=== PATIENT | female | born 1990 | race Caucasian/White ===

== ENCOUNTER 2016-11-24 19:47 | Emergency (ER) | payer BC ==
[2016-11-24] MEDS ORDERED: NS 0.9% 1000 ML* 1,000 ML IV ONE (20:45)
[2016-11-24 21:01] LABS: Urine Bacteria Absent (Absent); Urine Bilirubin Negative (Negative); Urine Glucose Negative (Negative); Urine Nitrite Negative (Negative)
--- NOTE | 2016-11-24 21:44 | RAD ---
Indication: Threatened , vaginal bleeding. COMPARISON: There are no prior studies available for comparison. TECHNIQUE: Multiple real-time transvaginal images of the pelvis were obtained. FINDINGS: There is a sac like structure present in the lower uterine segment with internal echoes. The sac measures 1.45 cm in diameter corresponding to an estimate a gestational age of 6 weeks 2 days. There is also fluid in the upper portion of the endometrial cavity. No fetus or heartbeat is seen. The right ovary measured 3.1 x 2.0 x 2.6 cm. The left ovary measured 3.0 x 2.4 x 1.6cm. There is vascular flow within both ovaries. No free intraperitoneal fluid is seen. IMPRESSION: SACLIKE STRUCTURE IN THE LOWER UTERINE SEGMENT LIKELY REPRESENTING AN EARLY INTRAUTERINE AT HIGH RISK FOR SPONTANEOUS MISCARRIAGE OR ALTERNATIVELY A SPONTANEOUS MISCARRIAGE IN PROGRESS.
[2016-11-24 22:23] LABS: Hematocrit 40 % (35-47); Hemoglobin 13.4 g/dl (12.0-16.0); Mean Corpuscular HGB Conc 34 g/dl (31-36); Mean Corpuscular Hemoglobin 30 pg (27-31); Mean Corpuscular Volume 87 fL (80-97); Mean Platelet Volume 8 um3 (7.4-10.4); Red Blood Count 4.54 10^6/ul (4.0-5.4); Red Cell Distribution Width 13 % (10.5-15)
[2016-11-24 22:38] LABS: Albumin 4.4 g/dL (3.2-5.2); BUN/Creatinine Ratio 19.1 (8-20); Calcium 9.4 mg/dL (8.6-10.3); EGFR African American 136.7 (>60); EGFR Non-African American 106.3 (>60); Globulin 2.8 g/dL (2-4); Potassium 4.1 mmol/L (3.5-5.0); Total Bilirubin 0.3 mg/dL (0.2-1.0); Total Protein 7.2 g/dL (6.4-8.9)
[2016-11-25] MEDS ORDERED: Ibuprofen TAB* 200 MG PO ONE (00:29)
--- NOTE | 2016-11-25 00:37 | ED ---
Betito Wong Aidan, scribed for Mihir Zhang on 11/24/16 at 2108 . - HPI Summary HPI Summary: 26 y/o female presents to the ED with a complaint of acute, moderate episodes of heavy vaginal bleeding that began yesterday and became substantially heavier today. She is 9 weeks with her 3rd child. Several hours ago, she began passing large vaginal blood clots and has passed 5 clots since then. When she spoke with her PCP recently, she was told that she may have a yeast infection. Lastly, 2-3 days ago, she had a stomach virus with vomiting and diarrhea. The patient believes that she may be having a miscarriage. Hx of last menstrual period was 09/19/16. After evaluating the patient, Dr. Whitten requested discharge and for the patient to follow up with the clinic at 2PM tomorrow. - History of Current Complaint Chief Complaint: EDVaginalBleeding Stated Complaint: 9 WKS PREG/VAG BLEED//BLOOD CLOTS Time Seen by Provider: 11/24/16 20:38 Hx Obtained From: Patient, Family/Certified Diabetes Educator - mother Chief Complaint: Vaginal Bleeding Onset/Duration: Started Days Ago - began yesterday, Still Present Timing: Intermittent - episodes of heavy vaginal bleeding and passing clots, Lasting Hours Severity: Moderate Current Severity: Mild Pain Intensity: 0 Location of Pain: None Character: None Aggravating Factors: Other: - unknown Alleviating Factors: Other: - unknown Associated Signs and Symptoms: Positive: Vaginal Bleeding or Discharge - and passing large blood clots - Assessment Hx Now: Yes - 3rd Hx : 3 - Pt is currently with #3 Hx Para: 2 - Pt currently has 2 children SAB: 0 IEA: 0 History of Ectopic : No Vaginal Bleeding Amount: Large - heavy bleeding today. Hx Last Menstrual Period: 09/19/16 - Risk Factors Ovarian Torsion Risk Factor: Reproductive Age - Additional Pertinent History Maternal Blood Type and Rh: A Positive - Allergies/Home Medications Allergies/Adverse Reactions: Allergies Allergy/AdvReac Type Severity Reaction Status Date / Time Penicillins Allergy Unknown states Verified 04/11/14 16:07 unknown, allergy since baby per her mom PMH/Surg Hx/FS Hx/Imm Hx Infectious Disease History: No Infectious Disease History: Denies: Traveled Outside the [place] in Last 30 Days - Family History Known Family History: Negative: Diabetes - Social History Occupation: Employed Full-time Lives: Alone Alcohol Use: None Substance Use Type: Reports: None Smoking Status (MU): Never Smoked Tobacco Have You Smoked in the Last Year: No Review of Systems Constitutional: Negative Eyes: Negative ENT: Negative Cardiovascular: Negative Respiratory: Negative Gastrointestinal: Negative Genitourinary: Other - heavy vaginal bleeding Musculoskeletal: Negative Skin: Negative Neurological: Negative Psychological: Normal All Other Systems Reviewed And Are Negative: Yes Physical Exam - Physical Exam Triage Information Reviewed: Yes Vital Signs On Initial Exam: Temp Pulse Resp BP SpO2 FiO2 99.3 F 105 18 125/74 100 11/24/16 19:51 11/24/16 19:51 11/24/16 19:51 11/24/16 19:51 11/24/16 19:51 Vital Signs Reviewed: Yes Appearance: Positive: Well-Appearing, No Pain Distress Skin: Positive: Warm, Skin Color Reflects Adequate Perfusion, Dry Head/Face: Positive: Normal Head/Face Inspection Eyes: Positive: EOMI, DONELL ENT: Positive: Normal ENT inspection Neck: Positive: Supple, Nontender Respiratory/Lung Sounds: Positive: Clear to Auscultation, Breath Sounds Present Cardiovascular: Positive: RRR, Pulses are Symmetrical in both Upper and Lower Extremities Abdomen Description: Positive: Nontender, Soft Bowel Sounds: Positive: Present Musculoskeletal: Positive: Strength/ROM Intact Neurological: Positive: Sensory/Motor Intact, Alert, Oriented to Person Place, Time Psychiatric: Positive: Affect/Mood Appropriate AVPU Assessment: Alert - Vaginal Assessment Presentation Comment: unchanged Procedures - Procedure Summary Procedure Summary: Dr. Zhang performed a PELVIX EXAM procedure, during which carter chaperoned. The cervix was closed and there was active bleeding. Dr. Zhang could not fully clear the blood clots. The patient had no adnexal tenderness. Diagnostics - Vital Signs Vital Signs Temp Pulse Resp BP Pulse Ox 11/24/16 19:51 99.3 F 105 18 125/74 100 - Laboratory Lab Results: Lab Results 11/24/16 11/24/16 11/24/16 Range/Units 20:44 22:00 22:00 WBC 11.0 H (3.5-10.8) 10^3/ul RBC 4.54 (4.0-5.4) 10^6/ul Hgb 13.4 (12.0-16.0) g/dl Hct 40 (35-47) % MCV 87 (80-97) fL MCH 30 (27-31) pg MCHC 34 (31-36) g/dl RDW 13 (10.5-15) % Plt Count 256 (150-450) 10^3/ul MPV 8 (7.4-10.4) um3 Neut % (Auto) 69.5 (38-83) % Lymph % (Auto) 20.6 L (25-47) % Ripley % (Auto) 8.6 (1-9) % Eos % (Auto) 1.0 (0-6) % Baso % (Auto) 0.3 (0-2) % Absolute Neuts (auto) 7.7 (1.5-7.7) 10^3/ul Absolute Lymphs (auto) 2.3 (1.0-4.8) 10^3/ul Absolute Monos (auto) 0.9 H (0-0.8) 10^3/ul Absolute Eos (auto) 0.1 (0-0.6) 10^3/ul Absolute Basos (auto) 0 (0-0.2) 10^3/ul Absolute Nucleated RBC 0 10^3/ul Nucleated RBC % 0 INR (Anticoag Therapy) 0.90 (0.89-1.11) Sodium (133-145) mmol/L Potassium (3.5-5.0) mmol/L Chloride (101-111) mmol/L Carbon Dioxide (22-32) mmol/L Anion Gap (2-11) mmol/L BUN (6-24) mg/dL Creatinine (0.51-0.95) mg/dL Est GFR ( Amer) (>60) Est GFR (Non-Af Amer) (>60) BUN/Creatinine Ratio (8-20) Glucose (70-100) mg/dL Calcium (8.6-10.3) mg/dL Total Bilirubin (0.2-1.0) mg/dL AST (13-39) U/L ALT (7-52) U/L Alkaline Phosphatase (34-104) U/L Total Protein (6.4-8.9) g/dL Albumin (3.2-5.2) g/dL Globulin (2-4) g/dL Albumin/Globulin Ratio (1-3) Beta HCG, Quant mIU/mL Urine Color Straw Urine Appearance Clear Urine pH 7.0 (5-9) Ur Specific Warren 1.003 L (1.010-1.030) Urine Protein Negative (Negative) Urine Ketones Negative (Negative) Urine Blood 3+ H (Negative) Urine Nitrate Negative (Negative) Urine Bilirubin Negative (Negative) Urine Urobilinogen Negative (Negative) Ur Leukocyte Esterase Negative (Negative) Urine WBC (Auto) Absent (Absent) Urine RBC (Auto) 3+(>10/hpf) H (Absent) Ur Squamous Epith Cells Present H (Absent) Urine Bacteria Absent (Absent) Urine Glucose Negative (Negative) Blood Type Antibody Screen 11/24/16 11/24/16 Range/Units 22:00 22:00 WBC (3.5-10.8) 10^3/ul RBC (4.0-5.4) 10^6/ul Hgb (12.0-16.0) g/dl Hct (35-47) % MCV (80-97) fL MCH (27-31) pg MCHC (31-36) g/dl RDW (10.5-15) % Plt Count (150-450) 10^3/ul MPV (7.4-10.4) um3 Neut % (Auto) (38-83) % Lymph % (Auto) (25-47) % Ripley % (Auto) (1-9) % Eos % (Auto) (0-6) % Baso % (Auto) (0-2) % Absolute Neuts (auto) (1.5-7.7) 10^3/ul Absolute Lymphs (auto) (1.0-4.8) 10^3/ul Absolute Monos (auto) (0-0.8) 10^3/ul Absolute Eos (auto) (0-0.6) 10^3/ul Absolute Basos (auto) (0-0.2) 10^3/ul Absolute Nucleated RBC 10^3/ul Nucleated RBC % INR (Anticoag Therapy) (0.89-1.11) Sodium 135 (133-145) mmol/L Potassium 4.1 (3.5-5.0) mmol/L Chloride 103 (101-111) mmol/L Carbon Dioxide 26 (22-32) mmol/L Anion Gap 6 (2-11) mmol/L BUN 13 (6-24) mg/dL Creatinine 0.68 (0.51-0.95) mg/dL Est GFR ( Amer) 136.7 (>60) Est GFR (Non-Af Amer) 106.3 (>60) BUN/Creatinine Ratio 19.1 (8-20) Glucose 90 (70-100) mg/dL Calcium 9.4 (8.6-10.3) mg/dL Total Bilirubin 0.30 (0.2-1.0) mg/dL AST 14 (13-39) U/L ALT 10 (7-52) U/L Alkaline Phosphatase 45 (34-104) U/L Total Protein 7.2 (6.4-8.9) g/dL Albumin 4.4 (3.2-5.2) g/dL Globulin 2.8 (2-4) g/dL Albumin/Globulin Ratio 1.6 (1-3) Beta HCG, Quant 91459.00 mIU/mL Urine Color Urine Appearance Urine pH (5-9) Ur Specific Warren (1.010-1.030) Urine Protein (Negative) Urine Ketones (Negative) Urine Blood (Negative) Urine Nitrate (Negative) Urine Bilirubin (Negative) Urine Urobilinogen (Negative) Ur Leukocyte Esterase (Negative) Urine WBC (Auto) (Absent) Urine RBC (Auto) (Absent) Ur Squamous Epith Cells (Absent) Urine Bacteria (Absent) Urine Glucose (Negative) Blood Type A Positive Antibody Screen Negative Result Diagrams: 11/24/16 22:00 11/24/16 22:00 Lab Statement: Any lab studies that have been ordered have been reviewed, and results considered in the medical decision making process. - Ultrasound No standard instances Ultrasound Interpretation: Positive (See Comments) - TRANSVAGINAL US IMPRESSION : SACLIKE STRUCTURE IN THE LOWER UTERINE SEGMENT LIKELY REPRESENTING AN EARLY INTRAUTERINE AT HIGH RISK FOR SPONTANEOUS MISCARRIAGE OR ALTERNATIVELY A SPONTANEOUS MISCARRIAGE IN PROGRESS. Ultrasound Interpretation Completed By: Radiologist Course/Dx - Course Course Of Treatment: This is a 26 y/o female presenting with heavy vaginal bleeding that began yesterday and became substantially heavier today. She is currently around 9 weeks with her 3rd child (G = 3, P = 2, A = 0). Today, she has passed roughly 5 blood clots vaginally. The patient is concerned that she is having a miscarriage. Dr. Whitten requested that the patient be moved to a pelvic bed. He intends to come in to evaluate the patient. - Diagnoses Provider Diagnoses: Threatened - Provider Notifications Discussed Care Of Patient With: Dr. Whitten (MARKETING OPERATIONS CONSULTANT) Time Discussed With Above Provider: 23:34 - Dr. Whitten recommended a pelvic and to see how much the patient is bleeding. If she isnt bleeding much, she will follow up with Dr. Whitten at 2PM tomorrow. Dr. Wihtten was consulted again. She requested that the patient be placed on a pelvic bed and intends to come in to evaluate the patient. After evaluation, Dr. Whitten found the patient to be well enough for discharge. Discharge - Discharge Plan Condition: Stable Disposition: HOME Discharge Disposition Comment: Please follow up with the clinic at 2PM tomorrow. Patient Education Materials: Threatened Miscarriage (ED) Referrals: Odilon Frey MD [Primary Care Provider] - The documentation as recorded by the Betito wellington Aidan accurately reflects the service I personally performed and the decisions made by me, Mihir Zhang.
[2016-11-25 06:58] VITALS: BP 133/76
== END 2016-11-25 01:45 | disposition home or self-care (01) ==
LOC: ED 19:47
DX: O20.0 Threatened abortion (principal); Z3A.09 9 weeks gestation of pregnancy
CPT/HCPCS: 36415; 76817; 80053; 81003; 81015; 84702; 85025; 85610; 86850; 86900; 86901; 88305; 96360; 99284; A9270-GY

== ENCOUNTER 2017-01-20 12:54 | Emergency (ER) | payer BC ==
[2017-01-20 13:06] VITALS: BP 124/75
--- NOTE | 2017-01-20 14:15 | UC ---
Complaint Female HPI - HPI Summary HPI Summary: ONE DAY HISTORY OF LOWER ABDOMINAL AND RIGHT FLANK DISCOMFORT, COMES AND GOES. URGENCY AND FREQUENCY WITH URINATION. NO FEVER. NO HISTORY OF KIDNEY STONES. LAST MENSTRUL PERIOD 01/13/17 WAS FIRST PERIOD SINCE MISCARRIED ON 11/25/16. - History Of Current Complaint Chief Complaint: UCAbdominalPain Stated Complaint: SIDE PAIN Time Seen by Provider: 01/20/17 13:46 Hx Obtained From: Patient Hx Last Menstrual Period: 01/13/17 Onset/Duration: Gradual Onset, Lasting Days, Still Present Timing: Intermittent, Lasting Seconds Severity Initially: Mild Severity Currently: Mild Character: Dull, Burning, Colicy Aggravating Factor(s): Movement, Urination Associated Signs And Symptoms: Positive: Back Pain. Negative: Fever, Vaginal Bleeding/Discharge, Vaginal Discharge, Nausea, Vomiting(# Of Episodes =), Genital Swelling, Genital Blisters, Retained Foregin Body (Specify) - Risk Factors Ectopic Risk Factor: Negative Ovarian Torsion Risk Factor: Reproductive Age, Ovarian Cysts/Tumors - Allergies/Home Medications Allergies/Adverse Reactions: Allergies Allergy/AdvReac Type Severity Reaction Status Date / Time Penicillins Allergy Unknown states Verified 04/11/14 16:07 unknown, allergy since baby per her mom Home Medications: Home Medications Acetaminophen [Acetaminophen Extra Stren] 500 mg PO 01/20/17 [History] Multiple Vitamins W/ Minerals [Multivitamin Women] 1 tab PO 01/20/17 [History] PMH/Surg Hx/FS Hx/Imm Hx Previously Healthy: Yes Endocrine History Of: Denies: Diabetes, Thyroid Disease Cardiovascular History Of: Denies: Cardiac Disorders, Hypertension Respiratory History Of: Denies: COPD, Asthma GI/ History Of: Denies: Ulcer - Surgical History Surgical History: Yes Surgery Procedure, Year, and Place: orbital tripod fx surgery - Family History Known Family History: Negative: Diabetes - Social History Occupation: Employed Full-time Lives: With Family Alcohol Use: Rare Substance Use Type: None Smoking Status (MU): Never Smoked Tobacco Have You Smoked in the Last Year: No - Immunization History Most Recent Influenza Vaccination: 09/2013 Most Recent Tetanus Shot: 2010 Most Recent Pneumonia Vaccination: n/a Review of Systems Constitutional: Negative Skin: Negative Eyes: Negative ENT: Negative Respiratory: Negative Cardiovascular: Negative Gastrointestinal: Negative Genitourinary: Frequency, Urgency Motor: Negative Neurovascular: Negative Musculoskeletal: Negative Neurological: Negative Psychological: Negative All Other Systems Reviewed And Are Negative: Yes Physical Exam Triage Information Reviewed: Yes Appearance: Well-Appearing, No Pain Distress, Well-Nourished Vital Signs: Initial Vital Signs Temp 98.1 F 01/20/17 13:02 Pulse 86 01/20/17 13:02 Resp 18 01/20/17 13:02 BP 124/75 01/20/17 13:02 Pulse Ox 99 01/20/17 13:02 Vital Signs Reviewed: Yes Eye Exam: Normal Eyes: Positive: Conjunctiva Clear ENT Exam: Normal ENT: Positive: Normal ENT inspection, Hearing grossly normal, Pharynx normal, TMs normal Dental Exam: Normal Neck exam: Normal Neck: Positive: Supple, Nontender, No Lymphadenopathy Respiratory Exam: Normal Respiratory: Positive: Chest non-tender, Lungs clear, Normal breath sounds, No respiratory distress, No accessory muscle use Cardiovascular Exam: Normal Cardiovascular: Positive: RRR, No Murmur, Pulses Normal, Brisk Capillary Refill Abdomen Description: Positive: No Organomegaly, Soft, Other: - MILD SUPRAPUBIC TENDERNESS, MORE ON RIGHT SIDE. Negative: CVA Tenderness (R), CVA Tenderness (L ) Musculoskeletal Exam: Normal Neurological Exam: Normal Psychological Exam: Normal Psychological: Positive: Normal Response To Family Skin Exam: Normal Complaint Female Dx - Differential Dx/Diagnosis Differential Diagnosis/HQI/PQRI: Appendicitis, Ovarian Cyst, Ovarian Torsion, Renal Colic, Ureteral Stone, Urinary Tract Infection, Other - RENAL CALCULI Provider Diagnoses: URINARY TRACT INFECTION Discharge - Discharge Plan Condition: Stable Disposition: HOME Prescriptions: Phenazopyridine TAB* [Pyridium 100 mg TAB*] 100 mg PO TID PRN #15 tab PRN Reason: Discomfort Sulfamethox/Trimethoprim DS* [Bactrim DS 800/160 TAB*] 1 tab PO BID #10 tab Patient Education Materials: Urinary Tract Infection in Women (ED) Referrals: Odilon Frey MD [Primary Care Provider] - Additional Instructions: PLEASE SEEK EVALUATION AT EMERGENCY DEPARTMENT IF ABDOMINAL PAIN OR BACK PAIN WORSEN, CONTINUE, OR IF NEW SYMPTOMS DEVELOP.
== END 2017-01-20 14:20 | disposition home or self-care (01) ==
LOC: UCEAST 12:54
DX: N39.0 Urinary tract infection, site not specified (principal); Z88.0 Allergy status to penicillin
CPT/HCPCS: 81003; 87086; 99212; G0463